=== PATIENT | female | born 1975 | race Caucasian/White ===

== ENCOUNTER → 2016-09-13 | Outpatient (CLI) | payer BC | LOC: FIMAGING 09:42 | PROVIDERS: ATTEND Obstetrics & Gynecology | DX: O09.512 Supervision of elderly primigravida, second trimester (principal); O35.8XX0 Maternal care for other (suspected) fetal abnormality and damage, not applicable or unspecified; Z3A.20 20 weeks gestation of pregnancy ==

== ENCOUNTER → 2016-11-22 | Outpatient (CLI) | payer BC | LOC: FIMAGING 14:42 | PROVIDERS: ATTEND Obstetrics & Gynecology | DX: O09.513 Supervision of elderly primigravida, third trimester (principal); Z3A.30 30 weeks gestation of pregnancy ==

== ENCOUNTER → 2017-01-03 | Outpatient (CLI) | payer BC | LOC: FIMAGING 12:24 | PROVIDERS: ATTEND Obstetrics & Gynecology | DX: O09.513 Supervision of elderly primigravida, third trimester (principal); Z3A.36 36 weeks gestation of pregnancy ==

== ENCOUNTER 2017-02-08 21:12 | Emergency (ER) | payer BC ==
[2017-02-08 21:19] VITALS: TEMP 97.9
--- NOTE | 2017-02-08 22:13 | EDPHY ---
H & P Stated Complaint: UNABLE TO VOID URINE WELL OR B.M. SINCE TUESDAY Time Seen by Provider: 02/08/17 22:01 HPI/ROS: HPI The patient presents with urinary retention for the last 1 day in the setting of constipation for the last 4 days, last normal bowel movement was 4 days ago. She is and had a spontaneous vaginal delivery on February 02 here. She did have some difficulty with hemorrhoids and had an episiotomy. She has been taking Colace and MiraLax in the . An today added senna , milk of magnesia, prune juice. She does not have any rectal bleeding. She does not have any dysuria or hematuria. She did not have constipation during her . She took [facility] while in the hospital and on her 1st day, otherwise has not been taking any opiate pain medications.. REVIEW OF SYSTEMS Constitutional: No fever, no chills. Eyes: No discharge. ENT: No sore throat. Cardiovascular: No chest pain, no palpitations. Respiratory: No cough, no shortness of breath. Gastrointestinal: No abdominal pain, no vomiting. Genitourinary: No hematuria. Musculoskeletal: No back pain. Skin: No rashes. Neurological: No headache. PMHx: Healthy Soc Hx: Lives at home with family PHYSICAL General Appearance: Alert, no distress Eyes: Pupils equal and round no pallor or injection ENT, Mouth: Mucous membranes moist Respiratory: There are no retractions, lungs are clear to auscultation Cardiovascular: Regular rate and rhythm Gastrointestinal: Abdomen is soft and non-tender, no masses, bowel sounds normal : 2 small non thrombosed hemorrhoids at 6 o'clock, large amount of stool in rectal vault, surgical perineal scar is intact with surrounding ecchymoses, no surrounding erythema, warmth, edema Neurological: A&O, moves all extremities Skin: Warm and dry, no rashes Musculoskeletal: Neck is supple non tender Extremities: symmetrical, full range of motion Psychiatric: Patient is oriented X 3, there is no agitation Source: Patient Exam Limitations: No limitations - Personal History LMP (Females 10-55): Now Current Tetanus/Diphtheria Vaccine: Yes Current Tetanus Diphtheria and Acellular Pertussis (TDAP): Yes - Medical/Surgical History Hx Asthma: No Hx Chronic Respiratory Disease: No Hx Diabetes: No Hx Cardiac Disease: No Hx Renal Disease: No Hx Cirrhosis: No Hx Alcoholism: No Hx HIV/AIDS: No Hx Splenectomy or Spleen Trauma: No Other PMH: MIGRAINES, 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 - Social History Smoking Status: Never smoked Constitutional: Initial Vital Signs Temperature (C) 36.6 C 02/08/17 21:16 Heart Rate 92 02/08/17 21:16 Respiratory Rate 18 02/08/17 21:16 Blood Pressure 152/96 H 02/08/17 21:16 O2 Sat (%) 95 02/08/17 21:16 O2 Delivery Mode Room Air Allergies/Adverse Reactions: No Known Allergies Allergy (Verified 02/08/17 21:19) Home Medications: Medication Instructions Recorded NK [No Known Home Meds] 02/08/17 Medical Decision Making Differential Diagnosis: This is a 42-year-old female, approximately 6 days from a normal spontaneous vaginal delivery complicated by episiotomy who presents with constipation and urinary retention. She has taken multiple laxatives at home without any improvement in his increased her p.o. intake significantly. On exam , she does have 2 small hemorrhoids and her pediatric me appears to be healing well with some mild ecchymoses. She has a large amount of stool in her rectal vault. I was able to disimpact her and remove much of this, however she is still unable to have a bowel movement or void on her own., because of this, decision was made to administer soapsuds enema gently to avoid any trauma to her perineum. This is administered successfully and she was able to void without difficulty afterwards. I have encouraged her to continue taking the laxatives her OBGYN as prescribed. She will be discharged from the emergency department. Departure - Departure Disposition: Home, Routine, Self-Care Clinical Impression: Urinary retention Constipation Qualifiers: Constipation type: unspecified constipation type Qualified Code(s): K59.00 - Constipation, unspecified Condition: Good Instructions: Constipation (ED) Additional Instructions: Please make sure to drink plenty of fluids. You should take the medications that your OBGYN has recommended for you. Return to the emergency department if your worse in any way. Referrals: Trinity Diaz MD [Primary Care Provider] - As per Instructions
[2017-02-09 00:01] VITALS: BP 119/65; PULSE 73; RESP 16; O2SAT 97
== END 2017-02-09 00:04 | disposition home or self-care (01) ==
DX: O99.89 Other specified diseases and conditions complicating pregnancy, childbirth and the puerperium (principal); R33.9 Retention of urine, unspecified; K59.00 Constipation, unspecified; O99.63 Diseases of the digestive system complicating the puerperium

== ENCOUNTER → 2017-02-08 | Outpatient (CLI) | payer BC | LOC: FLACT 09:48 | PROVIDERS: ATTEND Obstetrics & Gynecology | DX: Z39.1 Encounter for care and examination of lactating mother (principal) | CPT/HCPCS: G0463 ==

== ENCOUNTER 2017-05-11 20:30 | Emergency (ER) | payer BC ==
[2017-05-11 20:39] VITALS: RESP 18
--- NOTE | 2017-05-11 20:45 | EDPHY ---
H & P Stated Complaint: MIGRAINE HEADACHE FOR PAST 3 DAYS, N, HEAD PAIN AND ANXIETY Time Seen by Provider: 05/11/17 20:44 HPI/ROS: HPI: This is a 42-year-old female who presents with Chief Complaint: MIGRAINE HEADACHE FOR PAST 3 DAYS, N, HEAD PAIN AND ANXIETY Location: Behind both eyes, base of neck Quality: Pressure pain Duration: 3 days Signs and Symptoms: no fever, + nausea, no vomiting, no photophobia, no noise sensitivity, no neck stiffness, no ear pain, no tinnitus, no nasal congestion, no sinus pressure, no weakness, no radiation, no aura Timing: Acute, constant Severity: Moderate Context: Patient has a history of migraine headaches and presents with complaints of 1 that is similar to her prior episodes has lasted for 3 days. The pain is like the other migraines that she has. She has tried resting at home and taking [id number] headache medicine without any improvement in her symptoms. She believes that her migraines have restarted as her hormonal levels have change. She gave approximately 2 months ago and during that 9 months she was did not experience any migraines. She was recently out of town for a family and had to return home early with her child and herself as everyone had the flu. She is currently take Tamiflu. She is trying to drink fluids. She admits to feeling stressed and run down. Denies any cough/shortness of breath/neck stiffness/fevers/vomiting/diarrhea. Currently breast feeding. Modifying Factors: Tamiflu Comment: ROS: see HPI Constitutional: No fever, no chills, no weight loss Eyes: No blurred vision Respiratory: No shortness of breath, no cough Cardiovascular: No chest pain, no palpitations Gastrointestinal: No nausea, no vomiting, no diarrhea, no hematemesis, no blood in stool Genitourinary: No dysuria, no blood in urine Extremities: No myalgias, no edema Neurologic: No weakness, no numbness Skin: No rashes, no petechiae Hematologic: No bruising, no bleeding MEDICAL/SURGICAL/SOCIAL HISTORY: Medical history: Migraine headache Surgical history: Social history: . Has children. Family history noncontributory. CONSTITUTIONAL: Extremely pleasant adult white female, awake and alert, no obvious distress HEENT: Atraumatic and normocephalic. NECK: supple, no midline tenderness, flexion 45 degrees, extension 45 degrees, right and left lateral flexion 45 degrees. No meningismus. Cardiovascular: Normal S1/S2, regular rate, regular rhythm, without murmur rub or gallop. PULMONARY/CHEST: Symmetrical and nontender. no crepitus. Clear to auscultation bilaterally. Good air movement. No accessory muscle usage. ABDOMEN: Soft, nondistended, nontender, no ecchymosis. PELVIC: no pain with rocking; bilateral hips flexion 125 degrees, extension 30 degrees, with no pain internal rotation and no pain external rotation. BACK: No midline tenderness, no paraspinous spasm, deep tendon reflexes 2/2, no pain with straight leg raise EXTREMITIES: 2/2 pulses, strength 5/5, DIP/PIP/MCP flexion/extension intact with good light touch sensation. no deformities, no clubbing, no cyanosis or edema. NEUROLOGICAL: no focal neuro deficits. GCS 15. Light touch sensation intact. Cranial nerves 2-12 grossly intact SKIN: Warm and dry, no erythema. no rash. Good capillary refill. 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 - Social History Smoking Status: Never smoked Constitutional: Initial Vital Signs Temperature (C) 36.6 C 05/11/17 20:37 Heart Rate 93 05/11/17 20:37 Respiratory Rate 18 05/11/17 20:37 Blood Pressure 126/84 H 05/11/17 20:37 O2 Sat (%) 98 05/11/17 20:37 O2 Delivery Mode Room Air Allergies/Adverse Reactions: No Known Allergies Allergy (Verified 05/11/17 20:39) Home Medications: Medication Instructions Recorded Acet/Caffeine/Buta Fioricet 1 each PO Q6 PRN #6 tab 05/11/17 [Fioricet (*)] Acetaminophen [ACETAMINOPHEN] 160 mg PO 05/11/17 Ondansetron Odt [Zofran Odt 4 mg 4 mg PO Q4 PRN #12 tab 05/11/17 (*)] Oseltamivir Phosphate [Tamiflu 75 75 mg PO BID 05/11/17 mg (*)] SUMAtriptan [Sumatriptan] 5 mg NS 05/11/17 Sertraline HCl [Zoloft 50mg (*)] 50 mg PO DAILY 05/11/17 Zolpidem Tartrate [Ambien] 10 mg PO 05/11/17 Medical Decision Making ED Course/Re-evaluation: No neurological deficits and vital signs stable upon arrival. Given migraine cocktail consisting of 1 L normal saline, IV Toradol, IV Zofran, IV Ativan and IV Benadryl. 2208: Reassessed patient who reports that her migraine headache is down from a 8/10 to 4 out of tendon she is requesting be discharged home. Passed p.o. Trial. This patient was seen under the supervision of my secondary supervising physician. I evaluated care for this patient independently. Differential Diagnosis: Headache including but not limited to subarachnoid hemorrhage, migraine headache , tension headache and infectious causes such as meningitis, pharyngitis and sinusitis. - Data Points Medications Given: Discontinued Medications Diphenhydramine HCl (Benadryl Injection) 50 mg IVP EDNOW ONE Stop: 05/11/17 20:54 Last Admin: 05/11/17 21:02 Dose: 50 mg Sodium Chloride (Ns) 1,000 mls @ 0 mls/hr IV ONCE ONE; Wide Open PRN Reason: Protocol Stop: 05/11/17 20:54 Last Admin: 05/11/17 21:01 Dose: 1,000 mls Ketorolac Tromethamine (Toradol) 30 mg IVP EDNOW ONE Stop: 05/11/17 20:54 Last Admin: 05/11/17 21:02 Dose: 30 mg Lorazepam (Ativan Injection) 1 mg IVP EDNOW ONE Stop: 05/11/17 20:54 Last Admin: 05/11/17 21:01 Dose: 1 mg Ondansetron HCl (Zofran) 4 mg IVP EDNOW ONE Stop: 05/11/17 20:54 Last Admin: 05/11/17 21:02 Dose: 4 mg Departure - Departure Disposition: Home, Routine, Self-Care Clinical Impression: Migraine without aura Qualifiers: Status migrainosus presence: without status migrainosus Intractability: not intractable Qualified Code(s): G43.009 - Migraine without aura, not intractable , without status migrainosus Condition: Good Instructions: Migraine Headache (ED) Additional Instructions: Consume a minimum of 8-10 glasses of water or electrolyte fluid replacement drinks that include Gatorade, Powerade, Pedialyte. Eat a bland diet for the next 48 hours and then slowly advance as tolerated. Take Zofran 1 tab every 4 hours as needed for nausea, vomiting. Take Fioricet every 6 hr as needed for migraine headache. Make sure to pump and dump your breast milk after taking medication. Fioricet can be excreted into breast milk. Return to the ER immediately if you have progressive headaches, neurologic deficits, gait abnormality, visual disturbance, slurred speech, or any other symptom that concerns you. Referrals: Trinity Diaz MD [Primary Care Provider] - As per Instructions Prescriptions: Acet/Caffeine/Buta Fioricet [Fioricet (*)] 1 each PO Q6 PRN #6 tab PRN Reason: Headache, Migrane Ondansetron Odt [Zofran Odt 4 mg (*)] 4 mg PO Q4 PRN #12 tab PRN Reason: Nausea/Vomiting, Use 1st
[2017-05-11] MEDS ORDERED: KETOROLAC 30 MG/1 ML SDV IVP ONE (20:53)
[2017-05-11] MEDS ORDERED: LORazepam 2 MG/ML INJ IVP ONE (20:53)
[2017-05-11] MEDS ORDERED: NS 1,000 ML IV ONE (20:53)
[2017-05-11] MEDS ORDERED: ONDANSETRON 4 MG/2 ML VIAL IVP ONE (20:53)
[2017-05-11] MEDS ORDERED: PROMETHAZINE 25 MG PREPACK #4 BTL TAKEHOME ONE (22:07)
[2017-05-11] MEDS ORDERED: LORAZEPAM 1 MG PREPACK#4 BTL TAKEHOME ONE (22:25)
[2017-05-11 22:47] VITALS: BP 109/77; PULSE 87; TEMP 98.8; O2SAT 95
== END 2017-05-11 22:48 | disposition home or self-care (01) ==
DX: G43.009 Migraine without aura, not intractable, without status migrainosus (principal); E86.9 Volume depletion, unspecified
CPT/HCPCS: 96374; J1200; J1885; J2060; J2405

== ENCOUNTER 2017-05-17 06:30 | Emergency (ER) | payer BC ==
[2017-05-17] MEDS ORDERED: NS 1,000 ML IV ONE (06:38)
[2017-05-17 07:01] LABS: PLATELET COUNT 233 10^3/uL (150-400)
[2017-05-17] MEDS ORDERED: DEXAMETHASONE 10 MG/ML VIAL IVP ONE (07:02)
[2017-05-17] MEDS ORDERED: METOCLOPRAMIDE 10 MG/2 ML VIAL IVP ONE (07:02)
[2017-05-17] MEDS ORDERED: KETOROLAC 30 MG/1 ML SDV IVP ONE (07:02)
--- NOTE | 2017-05-17 07:02 | EDPHY ---
H & P Stated Complaint: migraine off and on for one week Time Seen by Provider: 05/17/17 07:01 HPI/ROS: CHIEF COMPLAINT: Migraine headache HISTORY OF PRESENT ILLNESS: The patient presents to the ED with a migraine headache which is fairly typical. She has a longstanding history of migraines which have increased in frequency over the past several months. She describes typical frontal headache with nausea, vomiting and photophobia. She denies any fever or meningeal symptoms. She is having some associated symptoms of anxiety. The patient denies any history of fall or trauma. She has no complaints of neck pain. She denies chiropractic manipulation. REVIEW OF SYSTEMS: A comprehensive 10 point review of systems is otherwise negative aside from elements mentioned in the history of present illness. 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 - Social History Smoking Status: Never smoked - Physical Exam Exam: General Appearance: Alert, no distress Eyes: Pupils equal and round no pallor or injection ENT, Mouth: Mucous membranes moist Respiratory: There are no retractions, lungs are clear to auscultation Cardiovascular: Regular rate and rhythm Gastrointestinal: Abdomen is soft and nontender, no masses, bowel sounds normal Neurological: A&O, normal motor function, normal sensory exam, normal cranial nerves Skin: Warm and dry, no rashes Musculoskeletal: Neck is supple nontender Extremities: symmetrical, full range of motion Constitutional: Initial Vital Signs Temperature (C) 36.8 C 05/17/17 06:32 Heart Rate 82 05/17/17 06:32 Respiratory Rate 16 05/17/17 06:32 Blood Pressure 129/94 H 05/17/17 06:32 O2 Sat (%) 98 05/17/17 06:32 O2 Delivery Mode Room Air Allergies/Adverse Reactions: No Known Allergies Allergy (Verified 05/17/17 06:35) Home Medications: Medication Instructions Recorded Acet/Caffeine/Buta Fioricet 1 each PO Q6 PRN #6 tab 05/11/17 [Fioricet (*)] Acetaminophen [ACETAMINOPHEN] 160 mg PO 05/11/17 Ondansetron Odt [Zofran Odt 4 mg 4 mg PO Q4 PRN #12 tab 05/11/17 (*)] Oseltamivir Phosphate [Tamiflu 75 75 mg PO BID 05/11/17 mg (*)] SUMAtriptan [Sumatriptan] 5 mg NS 05/11/17 Sertraline HCl [Zoloft 50mg (*)] 50 mg PO DAILY 05/11/17 Zolpidem Tartrate [Ambien] 10 mg PO 05/11/17 LORazepam [Ativan] 1 mg PO BID PRN #10 tab 05/17/17 Ondansetron Odt [Zofran Odt] 4 mg PO Q4PRN PRN #20 tab 05/17/17 Medical Decision Making ED Course/Re-evaluation: The patient presents to the ED with a typical migraine headache. She had an IV established. She received 1 L of normal saline. She received IV Reglan, Ativan , Benadryl, Toradol and Decadron. I reviewed the patient's past medical records including her ED visit from April. I re-evaluated the patient at 8:20 a.m. and she is currently feeling better. The patient will be discharged home with a prescription for Ativan and Zofran. I have asked her to follow-up with her primary care provider regarding her increasing migraine frequency and anxiety. She has been informed that Ativan is appropriate for short-term treatment of anxiety and is habit-forming Differential Diagnosis: Differential diagnosis considered includes migraine headache, tension headache, anxiety, meningitis - Data Points Laboratory Results: Laboratory Results 05/17/17 06:55 05/17/17 06:55 05/17/17 05/17/17 06:55 06:55 WBC 11.09 10^3/uL H 10^3/uL (3.80-9.50) RBC 4.13 10^6/uL L 10^6/uL (4.18-5.33) Hgb 13.3 g/dL g/dL (12.6-16.3) Hct 39.9 % % (38.0-47.0) MCV 96.6 fL fL (81.5-99.8) MCH 32.2 pg pg (27.9-34.1) MCHC 33.3 g/dL g/dL (32.4-36.7) RDW 13.2 % % (11.5-15.2) Plt Count 233 10^3/uL 10^3/uL (150-400) MPV 10.2 fL fL (8.7-11.7) Neut % (Auto) 80.1 % H % (39.3-74.2) Lymph % (Auto) 10.6 % L % (15.0-45.0) [place] % (Auto) 6.3 % % (4.5-13.0) Eos % (Auto) 2.0 % % (0.6-7.6) Baso % (Auto) 0.6 % % (0.3-1.7) Nucleat RBC Rel Count 0.0 % % (0.0-0.2) Absolute Neuts (auto) 8.89 10^3/uL H 10^3/uL (1.70-6.50) Absolute Lymphs (auto) 1.17 10^3/uL 10^3/uL (1.00-3.00) Absolute Monos (auto) 0.70 10^3/uL 10^3/uL (0.30-0.80) Absolute Eos (auto) 0.22 10^3/uL 10^3/uL (0.03-0.40) Absolute Basos (auto) 0.07 10^3/uL 10^3/uL (0.02-0.10) Absolute Nucleated RBC 0.00 10^3/uL 10^3/uL (0-0.01) Immature Gran % 0.4 % % (0.0-1.1) Immature Gran # 0.04 10^3/uL 10^3/uL (0.00-0.10) Sodium 141 mEq/L mEq/L (135-145) Potassium 4.1 mEq/L mEq/L (3.5-5.2) Chloride 99 mEq/L mEq/L (97-110) Carbon Dioxide 28 mEq/l mEq/l (22-31) Anion Gap 14 mEq/L mEq/L (8-16) BUN 9 mg/dL mg/dL (7-23) Creatinine 0.6 mg/dL mg/dL (0.6-1.0) Estimated GFR > 60 Glucose 82 mg/dL mg/dL (70-100) Calcium 9.8 mg/dL mg/dL (8.5-10.4) Medications Given: Discontinued Medications Dexamethasone (Decadron Injection) 10 mg IVP EDNOW ONE Stop: 05/17/17 07:03 Last Admin: 05/17/17 07:31 Dose: 10 mg Diphenhydramine HCl (Benadryl Injection) 25 mg IVP EDNOW ONE Stop: 05/17/17 07:03 Last Admin: 05/17/17 07:29 Dose: 25 mg Sodium Chloride (Ns) 1,000 mls @ 0 mls/hr IV ONCE ONE PRN Reason: Wide Open Stop: 05/17/17 06:39 Last Admin: 05/17/17 07:32 Dose: 1,000 mls Ketorolac Tromethamine (Toradol) 30 mg IVP EDNOW ONE Stop: 05/17/17 07:03 Last Admin: 05/17/17 07:18 Dose: 30 mg Lorazepam (Ativan Injection) 1 mg IVP EDNOW ONE Stop: 05/17/17 07:09 Last Admin: 05/17/17 07:16 Dose: 1 mg Metoclopramide HCl (Reglan Injection) 10 mg IVP EDNOW ONE Stop: 05/17/17 07:03 Last Admin: 05/17/17 07:15 Dose: 10 mg Departure - Departure Disposition: Home, Routine, Self-Care Clinical Impression: Migraine headache Condition: Good Instructions: Acute Headache (ED) Additional Instructions: 1. You have been given a prescription for Zofran and Ativan. 2. Please discuss your current medications with your primary care provider. Ativan is not a good medication to use for long-term management of anxiety as a can be habit forming and resultant rebound anxiety when discontinued. 3. Return to the ED for severe headache, markedly worsening symptoms or other concerns. You have also been given the number of our on-call neurologist Dr. Rad Olmos for further evaluation of your migraine headaches Referrals: Trinity Diaz MD [Primary Care Provider] - As per Instructions Rad Olmos DO [Medical Doctor] - As per Instructions Prescriptions: LORazepam [Ativan] 1 mg PO BID PRN #10 tab PRN Reason: Anxiety Ondansetron Odt [Zofran Odt] 4 mg PO Q4PRN PRN #20 tab PRN Reason: For Nausea
[2017-05-17] MEDS ORDERED: LORazepam 2 MG/ML INJ IVP ONE (07:08)
[2017-05-17 08:06] VITALS: RESP 12
[2017-05-17 09:14] VITALS: BP 105/79; PULSE 74; TEMP 97.5; O2SAT 94
== END 2017-05-17 09:13 | disposition home or self-care (01) ==
DX: G43.909 Migraine, unspecified, not intractable, without status migrainosus (principal)
CPT/HCPCS: 96374; J1100; J1200; J1885; J2060; J2765

== ENCOUNTER 2017-06-14 06:42 | Emergency (ER) | payer BC ==
[2017-06-14 07:03] VITALS: RESP 16
[2017-06-14] MEDS ORDERED: KETOROLAC 30 MG/1 ML SDV IVP ONE (07:19)
[2017-06-14] MEDS ORDERED: DEXAMETHASONE 10 MG/ML VIAL IVP ONE (07:19)
[2017-06-14] MEDS ORDERED: NS 1,000 ML IV ONE (07:19)
[2017-06-14] MEDS ORDERED: LORazepam 2 MG/ML INJ IVP ONE (07:19)
[2017-06-14] MEDS ORDERED: METOCLOPRAMIDE 10 MG/2 ML VIAL IVP ONE (07:19)
--- NOTE | 2017-06-14 07:23 | EDPHY ---
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 - Social History Smoking Status: Never smoked Constitutional: Initial Vital Signs Temperature (C) 36.4 C 06/14/17 06:47 Heart Rate 90 06/14/17 06:47 Respiratory Rate 16 06/14/17 06:47 Blood Pressure 122/79 H 06/14/17 06:47 O2 Sat (%) 95 06/14/17 06:47 O2 Delivery Mode Room Air Allergies/Adverse Reactions: No Known Allergies Allergy (Verified 05/17/17 06:35) Home Medications: Medication Instructions Recorded Acet/Caffeine/Buta Fioricet 1 each PO Q6 PRN #6 tab 05/11/17 [Fioricet (*)] Acetaminophen [ACETAMINOPHEN] 160 mg PO 05/11/17 Ondansetron Odt [Zofran Odt 4 mg 4 mg PO Q4 PRN #12 tab 05/11/17 (*)] Oseltamivir Phosphate [Tamiflu 75 75 mg PO BID 05/11/17 mg (*)] SUMAtriptan [Sumatriptan] 5 mg NS 05/11/17 Sertraline HCl [Zoloft 50mg (*)] 50 mg PO DAILY 05/11/17 Zolpidem Tartrate [Ambien] 10 mg PO 05/11/17 LORazepam [Ativan] 1 mg PO BID PRN #10 tab 05/17/17 Ondansetron Odt [Zofran Odt] 4 mg PO Q4PRN PRN #20 tab 05/17/17 Medical Decision Making ED Course/Re-evaluation: CHIEF COMPLAINT: Migraine for 5 days HISTORY OF PRESENT ILLNESS: 42-year-old female whose had migraine headaches since age 15. They are usually hormonally related. She just had a baby about 9 months ago. Since she has had the baby she has had more frequent and more persistent migraine headaches. She was completely headache free while . She denies any neurologic problems, denies any nausea vomiting, denies any visual deficits, balance deficits, dizziness or any other symptoms except for her usual head pain. REVIEW OF SYSTEMS: A 10 point review of systems was performed and is negative with the exception of the elements mentioned in the history of present illness. PHYSICAL EXAM: HR, BP, O2 Sat, RR. Temp noted General Appearance: Alert, well hydrated, appropriate, and non-toxic appearing. Head: Atraumatic without scalp tenderness or obvious injury Eyes: Pupils equal, round, reactive to light and accommodation, EOMI, no trauma , no injection. Ears: Clear bilaterally, no perforation, normal landmarks Nose: Atraumatic, no rhinorrhea, clear. Throat: There is no erythema or exudates, no lesions, normal tonsils, mucus membranes moist. Neck: Supple, 2+ carotid upstroke, nontender, no lymphadenopathy. Respiratory: No retractions, no distress, no wheezes, and no accessory muscle use. Lungs are clear to auscultation bilaterally. Cardiovascular: Regular rate and rhythm, no murmurs, rubs, or gallops. Bilateral carotid, radial, dorsalis pedis, and posterior tibial pulses intact. Good capillary refill all extremities. Gastrointestinal: Abdomen is soft, nontender, non-distended, no masses, no rebound, no guarding, no peritoneal signs. Musculoskeletal: Normal active ROM of all extremities, atraumatic. Neurological: Alert, appropriate, and interactive. The patient has normal DTRs and non-focal cranial nerves, motor, sensory, and cerebellar exam. Skin: No rashes, good turgor, no nodules on palpation. Past medical history: Migraine headaches Past surgical history: Noncontributory Family history: Noncontributory Social history: , children, mother is currently at home, patient has stored breast milk so she can obtain medicine today DIFFERENTIAL DIAGNOSIS: The differential diagnosis for the patient's headache included but was not limited to subarachnoid hemorrhage, migraine headache, tension headache and infectious causes such as meningitis, pharyngitis and sinusitis. MEDICAL DECISION MAKING: This patient is having her usual migraine headache that is not being relieved with her usual treatment of sumatriptan and Excedrin migraine. She has had more persistent and more extensive migraines since the of her child. She was completely headache free during her . She has no neurologic problems in this is a usual migraine for her. I have treated her with Reglan 10 mg, ketorolac 30 mg, Ativan 1 mg, and Decadron 10 mg. Her headache is resolved completely she will go home. She knows that she should pump and dump milk today which is not an issue she has milk stored. Additionally, I have referred her to Neurology because she has had relief with Botox injections in her neck in the past. - Data Points Medications Given: Discontinued Medications Dexamethasone (Decadron Injection) 10 mg IVP EDNOW ONE Stop: 06/14/17 07:20 Last Admin: 06/14/17 07:53 Dose: 10 mg Sodium Chloride (Ns) 1,000 mls @ 0 mls/hr IV ONCE ONE; Wide Open PRN Reason: Protocol Stop: 06/14/17 07:20 Last Admin: 06/14/17 07:57 Dose: 1,000 mls Ketorolac Tromethamine (Toradol) 30 mg IVP EDNOW ONE Stop: 06/14/17 07:20 Last Admin: 06/14/17 07:56 Dose: 30 mg Lorazepam (Ativan Injection) 1 mg IVP EDNOW ONE Stop: 06/14/17 07:20 Last Admin: 06/14/17 07:57 Dose: 1 mg Metoclopramide HCl (Reglan Injection) 10 mg IVP EDNOW ONE Stop: 06/14/17 07:20 Last Admin: 06/14/17 07:56 Dose: 10 mg Departure - Departure Disposition: Home, Routine, Self-Care Clinical Impression: Migraine syndrome Condition: Good Instructions: Migraine Headache (ED), Acute Headache (ED) Referrals: Trinity Diaz MD [Primary Care Provider] - As per Instructions Rad Olmos DO [Medical Doctor] - As per Instructions
[2017-06-14 09:08] VITALS: BP 125/74; PULSE 84; TEMP 98.2; O2SAT 98
== END 2017-06-14 09:06 | disposition home or self-care (01) ==
DX: G43.909 Migraine, unspecified, not intractable, without status migrainosus (principal); E86.9 Volume depletion, unspecified
CPT/HCPCS: 96374; J1100; J1885; J2060; J2765

== ENCOUNTER 2017-07-05 08:37 | Emergency (ER) | payer BC ==
--- NOTE | 2017-07-05 09:16 | EDPHY ---
General Time Seen by Provider: 07/05/17 09:12 Narrative: CHIEF COMPLAINT: Headache HISTORY OF PRESENT ILLNESS: Patient complains of headache that started on Tuesday. This is described as a migraine type headache. Started her temples and I will move back to the occiput. It is a typical location progression for her, but the symptoms have not improved with her typical medications. She takes sumatriptan Excedrin headache. No relief. She does have some neck soreness but no stiffness. No fever. Chills. No vomiting. No chest pain or shortness of breath. Does have photophobia and phonophobia. The headaches have been worsened over the past 2 months as she has resolved her menstrual cycle. She was last year with complete resolution of headaches. Her menses started on Tuesday, the day of the headache. No other associated complaints or modifying factors. REVIEW OF SYSTEMS: Ten systems reviewed and are negative unless otherwise noted in the HPI PCP: Dr. Trinity Diaz SPECIALISTS: Neurology in [place]. Pending transition to Dr. Olmos PAST MEDICAL HISTORY: Migraine headaches PAST SURGICAL HISTORY: No recent surgeries SOCIAL HISTORY: Never smoker. Lives here independently with her spouse and children FAMILY HISTORY: Noncontributory EXAMINATION General Appearance: Alert, no distress Head: normocephalic, atraumatic Eyes: Pupils equal and round, no conjunctival pallor or injection ENT, Mouth: Mucous membranes moist Neck: Normal inspection, supple, non-tender Respiratory: Lungs are clear to auscultation Cardiovascular: Regular rate and rhythm Gastrointestinal: Abdomen is soft and nontender Back: non-tender, no bony abnormalities Neurological: GCS 15. A&O, nonfocal, normal gait. Strength is symmetric in the limbs. No pronator drift. Skin: Warm and dry, no rash Extremities: Nontender, no pedal edema Psychiatric: Mood and affect normal DIFFERENTIAL DIAGNOSES: Including but not limited to migraine, migraine with status, intractable headache, intracranial hemorrhage MDM: 9:20 a.m. Complaints of migraine headache with history of migraines. This is typical location and type of pain for her but is not improving with oral medications. She said the last time she was here she had complete resolution with the medications of ordered. I reviewed that visit ordered the same medications. Vital signs are limits. She has a normal neuro examination. Her neck is supple and without meningismus. Headache did coincide with her menstrual cycle. 10:40 a.m. Patient re-evaluated. She received her medications approximately 30 min ago and she is feeling significantly better. She would like to go home. I do feel she is stable for discharge home. We discussed short course of prescription medications. We discussed follow up with her neurologist, and she has an appointment on July 21. We discussed ED precautions including sudden change in headache, neck pain or stiffness, intractable pain. She is comfortable with this plan and discharged home stable condition. SUPERVISION: Patient was independently examined, but I discussed the case with my secondary supervising physician Dr. Samuels - History Smoking Status: Never smoked - Objective Vital Signs: Initial Vital Signs Temperature (C) 97.5 F 07/05/17 08:54 Heart Rate 90 07/05/17 08:54 Respiratory Rate 18 07/05/17 08:54 Blood Pressure 126/86 H 07/05/17 08:54 O2 Sat (%) 96 07/05/17 08:54 O2 Delivery Mode Room Air Allergies/Adverse Reactions: No Known Allergies Allergy (Verified 05/17/17 06:35) Home Medications: Medication Instructions Recorded Acetaminophen [ACETAMINOPHEN] 160 mg PO 05/11/17 SUMAtriptan [Sumatriptan] 5 mg NS 05/11/17 Sertraline HCl [Zoloft 50mg (*)] 50 mg PO DAILY 05/11/17 Zolpidem Tartrate [Ambien] 10 mg PO 05/11/17 LORazepam [Ativan] 1 mg PO BID PRN #10 tab 05/17/17 LORazepam [Ativan 1 mg (RX)] 1 mg PO TID PRN #14 tab 06/14/17 LORazepam [Ativan] 1 mg PO TID #10 tablet 07/05/17 Metoclopramide [Reglan 10 mg tab 10 mg PO BID #10 tab 07/05/17 (*)] Ondansetron Odt [Zofran Odt 4 mg 4 mg PO Q6 PRN #12 tab 07/05/17 (*)] Medications Given: Discontinued Medications Dexamethasone (Decadron Injection) 10 mg IVP EDNOW ONE Stop: 07/05/17 09:23 Last Admin: 07/05/17 09:57 Dose: 10 mg Sodium Chloride (Ns) 1,000 mls @ 0 mls/hr IV EDNOW ONE; Wide Open PRN Reason: Protocol Stop: 07/05/17 09:24 Last Admin: 07/05/17 09:55 Dose: 1,000 mls Ketorolac Tromethamine (Toradol) 30 mg IVP EDNOW ONE Stop: 07/05/17 09:23 Last Admin: 07/05/17 09:57 Dose: 30 mg Lorazepam (Ativan Injection) 1 mg IVP EDNOW ONE Stop: 07/05/17 09:23 Last Admin: 07/05/17 09:57 Dose: 1 mg Metoclopramide HCl (Reglan Injection) 10 mg IVP EDNOW ONE Stop: 07/05/17 09:23 Last Admin: 07/05/17 09:57 Dose: 10 mg Departure - Departure Disposition: Home, Routine, Self-Care Clinical Impression: Migraine Qualifiers: Migraine type: unspecified Status migrainosus presence: without status migrainosus Intractability: not intractable Qualified Code(s): G43.909 - Migraine, unspecified, not intractable, without status migrainosus Condition: Good Instructions: Metoclopramide (By mouth), Ondansetron (By mouth), Lorazepam (By injection), Migraine Headache (ED) Additional Instructions: 1. Medications as prescribed as needed 2. Follow up with primary care physician and established neurologist 3. ED precautions as discussed Referrals: Trinity Diaz MD [Primary Care Provider] - As per Instructions Rad Olmos DO [Medical Doctor] - As per Instructions Prescriptions: LORazepam [Ativan] 1 mg PO TID #10 tablet Metoclopramide [Reglan 10 mg tab (*)] 10 mg PO BID #10 tab Ondansetron Odt [Zofran Odt 4 mg (*)] 4 mg PO Q6 PRN #12 tab PRN Reason: Nausea/Vomiting, Use 1st
[2017-07-05] MEDS ORDERED: METOCLOPRAMIDE 10 MG/2 ML VIAL IVP ONE (09:22)
[2017-07-05] MEDS ORDERED: KETOROLAC 30 MG/1 ML SDV IVP ONE (09:22)
[2017-07-05] MEDS ORDERED: LORazepam 2 MG/ML INJ IVP ONE (09:22)
[2017-07-05] MEDS ORDERED: DEXAMETHASONE 10 MG/ML VIAL IVP ONE (09:22)
[2017-07-05] MEDS ORDERED: NS 1,000 ML IV ONE (09:23)
[2017-07-05 11:02] VITALS: BP 112/71
== END 2017-07-05 11:02 | disposition home or self-care (01) ==
DX: G43.909 Migraine, unspecified, not intractable, without status migrainosus (principal); E86.9 Volume depletion, unspecified
CPT/HCPCS: 96374; J1100; J1885; J2060; J2765

== ENCOUNTER 2017-07-10 16:02 | Emergency (ER) | payer BC ==
[2017-07-10] MEDS ORDERED: DEXAMETHASONE 10 MG/ML VIAL IVP ONE (16:47)
[2017-07-10] MEDS ORDERED: KETOROLAC 30 MG/1 ML SDV IVP ONE (16:47)
[2017-07-10] MEDS ORDERED: ONDANSETRON 4 MG/2 ML VIAL IVP ONE (16:47)
[2017-07-10] MEDS ORDERED: NS 1,000 ML IV ONE (16:53)
--- NOTE | 2017-07-10 17:04 | EDPHY ---
H & P Time Seen by Provider: 07/10/17 16:11 HPI/ROS: CHIEF COMPLAINT: "Migraine" HISTORY OF PRESENT ILLNESS: Patient is a 42-year-old female with a history migraine headaches. This particular migraine started 1 week ago. It was typical in started in the front of her head moved to the back. She took medications at home with no relief. This included sumatriptan and anxiety medication. Her pain is moderate to severe. It is not worse with movement. She denies vision change. No focal weakness or numbness. No fevers or chills. Patient states that her migraines improved while she was recently but they have returned. She has come to the emergency department previously. She normally receives Zofran, Benadryl, Toradol, and Decadron for her symptoms. REVIEW OF SYSTEMS: My complete review of systems is negative except as mentioned in the HPI. Past Medical/Surgical History: Includes migraine Past surgical history: Noncontributory Smoking Status: Never smoked Physical Exam: Vitals noted GENERAL: No acute distress, alert. HEENT: Eyes normal to inspection, normal pharynx, no signs of dehydration. NECK: No thyromegaly, no lymphadenopathy, supple. RESPIRATORY: Clear to auscultation bilaterally, no rales, rhonchi or wheezing. CVS: Regular rate and rhythm, no rubs, murmurs, or gallops. ABDOMEN: Soft, nontender, nondistended, no organomegaly. BACK: Normal to inspection, no CVA tenderness. SKIN: Normal color, no rash, warm, dry. No pallor. EXTREMITIES: No pedal edema, no calf tenderness, no Homans sign or cords, no joint swelling. NEURO/PSYCH: Higher functions: Alert and Oriented x3. Normal speech and cognition. Normal mood and affect. Cranial nerves: Normal as tested. Cerebellar: Normal as tested. Good finger to nose, good [id number], normal gait. Peripheral exam: Normal motor exam. Normal sensation. Normal reflexes. Constitutional: Initial Vital Signs Temperature (C) 36.7 C 07/10/17 16:04 Heart Rate 94 07/10/17 16:04 Respiratory Rate 18 07/10/17 16:04 Blood Pressure 141/97 H 07/10/17 16:04 O2 Sat (%) 94 07/10/17 16:04 O2 Delivery Mode Room Air Allergies/Adverse Reactions: No Known Allergies Allergy (Verified 07/10/17 16:04) Home Medications: Medication Instructions Recorded Acetaminophen [ACETAMINOPHEN] 160 mg PO 05/11/17 SUMAtriptan [Sumatriptan] 5 mg NS 05/11/17 Sertraline HCl [Zoloft 50mg (*)] 50 mg PO DAILY 05/11/17 Zolpidem Tartrate [Ambien] 10 mg PO 05/11/17 LORazepam [Ativan] 1 mg PO BID PRN #10 tab 05/17/17 LORazepam [Ativan 1 mg (RX)] 1 mg PO TID PRN #14 tab 06/14/17 LORazepam [Ativan] 1 mg PO TID #10 tablet 07/05/17 Metoclopramide [Reglan 10 mg tab 10 mg PO BID #10 tab 07/05/17 (*)] Ondansetron Odt [Zofran Odt 4 mg 4 mg PO Q6 PRN #12 tab 07/05/17 (*)] Medical Decision Making ED Course/Re-evaluation: In the emergency department discussed possible etiologies with the patient. I answered all her questions. IV was placed. Patient given Toradol, Zofran, Benadryl, and Decadron for her headache. I do not feel she needs imaging or laboratory studies at this time. I rechecked the patient. She still was having headache. She was given Reglan 10 mg IV and Ativan 1 mg IV. Rechecked the patient while here. She was stable with no new complaints. Prior to leaving the patient was doing well. She had no focal neurologic deficits. She was given warnings prior to leaving. She will return with worsening symptoms. Differential Diagnosis: My differential includes but is not limited to migraine, subarachnoid hemorrhage , subdural hematoma, epidural hematoma, meningitis, encephalitis - Data Points Medications Given: Discontinued Medications Dexamethasone (Decadron Injection) 10 mg IVP EDNOW ONE Stop: 07/10/17 16:48 Last Admin: 07/10/17 16:56 Dose: 10 mg Diphenhydramine HCl (Benadryl Injection) 25 mg IVP EDNOW ONE Stop: 07/10/17 16:48 Last Admin: 07/10/17 16:56 Dose: 25 mg Sodium Chloride (Ns) 1,000 mls @ 0 mls/hr IV ONCE ONE; Wide Open PRN Reason: Protocol Stop: 07/10/17 16:54 Last Admin: 07/10/17 16:57 Dose: 1,000 mls Ketorolac Tromethamine (Toradol) 30 mg IVP EDNOW ONE Stop: 07/10/17 16:48 Last Admin: 07/10/17 16:56 Dose: 30 mg Lorazepam (Ativan Injection) 1 mg IVP EDNOW ONE Stop: 07/10/17 18:00 Last Admin: 07/10/17 18:03 Dose: 1 mg Metoclopramide HCl (Reglan Injection) 10 mg IVP EDNOW ONE Stop: 07/10/17 18:00 Last Admin: 07/10/17 18:03 Dose: 10 mg Ondansetron HCl (Zofran) 4 mg IVP EDNOW ONE Stop: 07/10/17 16:48 Last Admin: 07/10/17 16:56 Dose: 4 mg Departure - Departure Disposition: Home, Routine, Self-Care Clinical Impression: Migraine Qualifiers: Migraine type: unspecified Status migrainosus presence: without status migrainosus Intractability: not intractable Qualified Code(s): G43.909 - Migraine, unspecified, not intractable, without status migrainosus Condition: Good Instructions: Migraine Headache (ED) Additional Instructions: Return with increasing headache, weakness, numbness, visual change or any other concerns. Referrals: Trinity Diaz MD [Primary Care Provider] - As per Instructions
[2017-07-10] MEDS ORDERED: METOCLOPRAMIDE 10 MG/2 ML VIAL IVP ONE (17:59)
[2017-07-10] MEDS ORDERED: LORazepam 2 MG/ML INJ IVP ONE (17:59)
[2017-07-10 19:41] VITALS: BP 112/83
== END 2017-07-10 19:40 | disposition home or self-care (01) ==
DX: G43.909 Migraine, unspecified, not intractable, without status migrainosus (principal); E86.9 Volume depletion, unspecified
CPT/HCPCS: 96374; J1100; J1200; J1885; J2060; J2405; J2765

== ENCOUNTER → 2018-07-27 | Outpatient (CLI) | payer BC | LOC: FIMAGING 14:02 | PROVIDERS: ATTEND Obstetrics & Gynecology | DX: Z12.31 Encounter for screening mammogram for malignant neoplasm of breast (principal) ==